=== PATIENT | female | born 2000 | race Caucasian/White ===

== ENCOUNTER 2022-04-20 11:17 | Outpatient (REF) | payer OTHER, SELFPAY ==
[2022-04-20 15:45] LABS: Bilirubin Negative (Negative); Blood Small (Negative); Clarity Sl Cloudy (Clear); Glucose Negative (Negative); Ketones Negative (Negative); Leukocyte Esterase Small (Negative); Nitrite Positive (Negative); Urobilinogen 0.2 EU/dL (Up TO 0.2); pH 6.5 (5-8)
[2022-04-20 15:55] LABS: Epithelial Cells Few HPF (Negative)
[2022-04-20 15:56] LABS: Bacteria Many HPF (Negative); C & S Indicated? C&S Done As Ordered; Crystals Moderate Amorphous HPF (Negative); Mucus Negative (Negative); Other Cells Moderate Renal (Negative)
== END 2022-04-20 11:18 | disposition home or self-care (01) ==
LOC: LBN 11:17
PROVIDERS: Visit Provider Physician Assistant Medical
DX: R30.9 Painful micturition, unspecified (principal)
CPT/HCPCS: 87077; 81003; 81015; 87086; 87186

== ENCOUNTER 2023-10-01 18:18 | Outpatient (CLI) | payer OTHER, SELFPAY ==
[2023-10-01 08:28] LABS: HCG Quant, Pregnancy 5774 mIU/mL (1-3)
== END 2023-10-01 18:19 | disposition home or self-care (01) ==
LOC: LBO 18:19
PROVIDERS: PCP Registered Nurse; Visit Provider Obstetrics & Gynecology
DX: O20.9 Hemorrhage in early pregnancy, unspecified (principal); Z34.91 Encounter for supervision of normal pregnancy, unspecified, first trimester
CPT/HCPCS: 36415; 86850; 86900; 86901; 84702

== ENCOUNTER 2024-02-28 01:04 | Outpatient (CLI) | payer OTHER, SELFPAY ==
[2024-02-28 14:24] LABS: Panorama Kit Sent via Fed Ex
[2024-02-28 14:42] LABS: Abs Immature Grans 0.08 10^3/uL (0.0-0.06); Absolute Lymphocyte Count 1.82 10^3/uL (1.2-3.4); Absolute Monocyte Count 0.75 10^3/uL (0.1-0.8); Absolute Neutrophil Count 8.12 10^3/uL (1.2-6.7); Basophils % 0.5 %; Eosinophils % 2.3 %; HCT 38.4 % (36.0-46.0); HGB 13.3 g/dL (11.2-15.7); Immature Grans % 0.7 %; Lymphocytes % 16.4 %; MCH 30.4 pg (27.0-33.0); MCHC 34.6 % (32.0-36.0); MCV 88 fL (80-95); MPV 9.2 fL (8.0-11.0); Monocytes % 6.8 %; Neutrophils % 73.3 %; Platelet Count 361 10^3/uL (130-400); RBC 4.38 10^6/uL (3.93-5.22); RDW 12.3 % (11.7-14.6); RDW-SD 39.1 fL; WBC 11.08 10^3/uL (4.4-10.8)
[2024-02-28 14:43] LABS: Absolute Basophil Count 0.06 10^3/uL (0.0-0.2); Absolute Eosinophil Count 0.25 10^3/uL (0.0-0.7)
[2024-02-28 14:53] LABS: Glucose,1 Hr (Glucola) 106 mg/dL (80-140)
[2024-02-29 09:30] LABS: Hepatitis B Surface Ag Negative (Negative)
[2024-02-29 09:59] LABS: Hepatitis C Ab w Rflx HCV PCR Negative (Negative)
[2024-02-29 10:14] LABS: HIV-1/2 Ag & Ab Screen Negative (Negative)
[2024-02-29 11:17] LABS: Varicella IgG Antibody Positive (See Note)
[2024-02-29 13:06] LABS: Rubella IgG Ab (UVM) Negative (See Note)
[2024-03-01 14:41] LABS: Syphilis IgG w/Reflex Nonreactive (Nonreactive)
[2024-03-03 17:13] LABS: Specimen WB Whole Blood
[2024-03-13 16:18] LABS: Result Summary NEGATIVE; Specimen WB Whole Blood
== END 2024-02-28 01:05 | disposition home or self-care (01) ==
LOC: LBO 01:04
PROVIDERS: PCP Registered Nurse; Visit Provider Advanced Practice Midwife
DX: Z34.91 Encounter for supervision of normal pregnancy, unspecified, first trimester; Z3A.12 12 weeks gestation of pregnancy
CPT/HCPCS: 36415; 81220; 81222; 81329; 82950; 86787; 86803; 86850; 86900; 86901; 87340; 87389; 85025; 86762; 86780

== ENCOUNTER 2024-02-28 14:53 | Outpatient (REF) | payer OTHER, SELFPAY ==
[2024-02-29 13:21] LABS: Chlamydia Result Negative (Negative); GC Result Negative (Negative)
== END 2024-02-28 14:54 | disposition home or self-care (01) ==
LOC: LBN 14:53
PROVIDERS: PCP Physician Assistant; Visit Provider Advanced Practice Midwife
DX: Z34.91 Encounter for supervision of normal pregnancy, unspecified, first trimester
CPT/HCPCS: 87491; 87591; 87086

== ENCOUNTER 2024-05-05 19:02 | Emergency (ER) | payer OTHER, SELFPAY ==
[2024-05-05 19:11] VITALS: BP 126/82; PULSE 102; RESP 16; TEMP 36.6; O2SAT 96
[2024-05-05 21:13] LABS: Bilirubin Negative (Negative); Blood Negative (Negative); Clarity Clear (Clear); Glucose Negative (Negative); Ketones Negative (Negative); Leukocyte Esterase Negative (Negative); Nitrite Negative (Negative); Urobilinogen 0.2 mg/dL (Up to 0.2); pH 6.5 (5-8)
--- NOTE | 2024-05-05 21:32 | W.ED.GENAD ---
Discharge Plan Disposition Patient Disposition: Home Condition: Improving Discharge Details Chief Complaint: Abd Prob Clinical Impression: Diarrhea Primary Care Provider: Oliver Barrera ED Provider: James Don Home Meds and New Rx's Prescriptions: No Action ondansetron 4 mg tablet,disintegrating 4 mg PO Q8H folic acid 800 mcg tablet 0.8 mg PO DAILY Flintstones Multivitamin Tablet,Chewable 2 tab PO DAILY ferrous sulfate [Feosol] 325 mg (65 mg iron) tablet 325 mg PO DAILY Qty: 90 4RF clotrimazole [Clotrimazole-7] 1 % cream 1 appful vaginal QHS Qty: 45 0RF docusate sodium [Colace] 100 mg capsule 100 mg PO DAILY aspirin 81 mg tablet,delayed release (DR/EC) 81 mg PO DAILY Qty: 60 5RF Rx Instructions: 1 tab daily, alternating with 2 tabs every other day Discharge Instructions Instructions: Diarrhea, Adult ED Additional Instructions: Please follow-up with your [employer] as well as your primary care physician. Return to the emergency department for any worsening symptoms HPI General Date/Time Provider Initiated Documentation: 05/05/24 20:51. HPI Narrative: 24-year-old female 22 weeks presents with diarrhea over the last 5 days nonbloody, patient does have history of C. difficile, outpatient primary care C. difficile negative on Sunday, patient has noticed some small amounts of mucus in her stool, was having upwards of 7 loose stools a day early on in the course it is now slow to 2-3 loose stools, denies abdominal pain vaginal bleeding discharge or urinary symptoms had a recent normal [employer] appointment with ultrasound. Feels normal movement. Denies nausea or vomiting Related Data Home Medications ?Medication ?Instructions ?Recorded ?Confirmed ondansetron 4 mg disintegrating 4 mg PO Q8H 09/19/23 05/05/24 tablet docusate sodium 100 mg capsule 100 mg PO DAILY 01/25/24 05/05/24 (Colace) aspirin 81 mg tablet,delayed 81 mg PO DAILY #60 tabs 02/28/24 05/05/24 release ferrous sulfate 325 mg (65 mg 325 mg PO DAILY #90 tabs 03/28/24 05/05/24 iron) tablet (Feosol) folic acid 800 mcg tablet 0.8 mg PO DAILY 03/28/24 05/05/24 pediatric multivitamin 2 tab PO DAILY 03/28/24 05/05/24 (Flintstones Multivitamin chewable tablet) clotrimazole 1 % vaginal cream 1 appful vaginal QHS #45 grams 04/28/24 05/05/24 (Clotrimazole-7) Previous Rx's ?Medication ?Instructions ?Recorded aspirin 81 mg tablet,delayed 81 mg PO DAILY #60 tabs 02/28/24 release ferrous sulfate 325 mg (65 mg 325 mg PO DAILY #90 tabs 03/28/24 iron) tablet (Feosol) clotrimazole 1 % vaginal cream 1 appful vaginal QHS #45 grams 04/28/24 (Clotrimazole-7) Allergies Allergy/AdvReac Type Severity Reaction Status Date / Time cephalexin (From Keflex) AdvReac Intermediate vomiting Verified 05/05/24 19:15 [id number] (From AdvReac Other (See Unverified 05/05/24 19:15 Ajovy Syringe) Comment) General Stated Complaint: Abd Prob DAHLIA: 3 Course Vital Signs Vital signs: Vital Signs Temperature 36.6 C 05/05/24 19:11 Pulse 102 H 05/05/24 19:11 Respiratory Rate 16 05/05/24 19:11 Blood Pressure 126/82 05/05/24 19:11 Pulse Oximetry 96 05/05/24 19:11 Temperature 36.6 C 05/05/24 19:11 Pulse 102 H 05/05/24 19:11 Respiratory Rate 16 05/05/24 19:11 Respiratory Effort Normal, Non-Labored 05/05/24 21:13 Blood Pressure 126/82 05/05/24 19:11 Blood Pressure Position Sitting 05/05/24 19:11 Pulse Oximetry 96 05/05/24 19:11 Oxygen Delivery Method Room Air 05/05/24 19:11 Oxygen Flow Rate 0 05/05/24 19:11 Pain Level 0 05/05/24 19:11 Lab/Test Results Lab/Test Results: Laboratory Tests Range/Units 05/05/24 21:07 Urine Color (Yellow) Yellow Urine Clarity (Clear) Clear Urine pH (5-8) 6.5 Ur Specific [place] (1.005-1.025) 1.020 Urine Protein (Neg-Trace) mg/dL Negative Urine Ketones (Negative) mg/dL Negative Urine Blood (Negative) Negative Urine Nitrite (Negative) Negative Urine Bilirubin (Negative) Negative Urine Urobilinogen (Up to 0.2) mg/dL 0.2 Ur Leukocyte Esterase (Negative) Negative Urine Glucose (Negative) mg/dL Negative POC- Test(urine) Positive Medical Decision Making 24-year-old female 22 weeks presents with diarrhea over the last 5 days nonbloody, patient does have history of C. difficile, outpatient primary care C. difficile negative on Sunday, patient has noticed some small amounts of mucus in her stool, was having upwards of 7 loose stools a day early on in the course it is now slow to 2-3 loose stools, denies abdominal pain vaginal bleeding discharge or urinary symptoms had a recent normal [employer] appointment with ultrasound. Feels normal movement. Denies nausea or vomiting; resting comfortably no acute distress, afebrile nonperitoneal, gravid abdomen, mild tachycardia heart rate of 102 normotensive, slight drying of oral mucosa however good skin color and skin turgor; will obtain basic labs to assess for electrolyte derangement, if patient has a bowel movement here department will recent C. difficile will also send ova parasites consider resolving viral enteritis lower suspicion for appendicitis or cholecystitis, lower suspicion for UTI will provide fluid hydration close reassessment 23: 00 patient resting comfortably no acute distress, feeling better after fluids, no bowel movement here in department. Patient will follow-up close with primary care and [employer] Quality:SDOH Health Related Social Needs: No Data to Display PFSH All Active Problems (Updated 05/05/24 @ 23:01 by James Don MD) Diarrhea (Acute) Rubella non-immune status, antepartum (Acute) Family history of genetic disorder (Acute) History of pyelonephritis (Acute) (Acute) Tonsillolith (Acute) BMI 32.0-32.9,adult (Acute) Migraine (Chronic) daily. 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, congenital cartilage deficiency Missed menses Miscarriage Transformed migraine Sensorineural hearing loss Recurrent candidiasis of vagina Pelvic pain Migraine with aura Hyperprolactinemia Galactorrhea Dysmenorrhea Chronic tension headache Asthma Allergic reaction Surgical History History of mandibular surgery Family History Maternal Grandfather Diabetes Paternal Grandfather Diabetes Maternal Aunt Hypertension Father Laryngeal hypoplasia tracheotomy Mother Preeclampsia ADHD Endometriosis Social History Smoking/Tobacco Use Status: Never Smoking risk assessment performed?: Yes Alcohol Intake: never Drug use: Never History History 2 Para 0 Hx # Term Pregnancies 0 Multiple births 0 Hx # Pregnancies 0 Ectopic pregnancies 0 AB induced 0 Hx Number of Living Children 0 AB spontaneous 1 Past Pregnancies Del. Date GA/Weeks # Preg Succ Route Wgt Sex Labor Lgth Anesthesia Location Prov Complic 10/01/23 7 No Delivery Date: 10/01/23 Last Updated by: Stefania Aviles MD SAB
[2024-05-05 21:38] LABS: Abs Immature Grans 0.09 10^3/uL (0.0-0.06); Absolute Basophil Count 0.04 10^3/uL (0.0-0.2); Absolute Eosinophil Count 0.25 10^3/uL (0.0-0.7); Absolute Lymphocyte Count 1.69 10^3/uL (1.2-3.4); Absolute Monocyte Count 0.89 10^3/uL (0.1-0.8); Absolute Neutrophil Count 6.68 10^3/uL (1.2-6.7); Basophils % 0.4 %; Eosinophils % 2.6 %; HCT 36.7 % (36.0-46.0); HGB 13.1 g/dL (11.2-15.7); Immature Grans % 0.9 %; Lymphocytes % 17.5 %; MCH 31.4 pg (27.0-33.0); MCHC 35.7 % (32.0-36.0); MCV 88 fL (80-95); Monocytes % 9.2 %; Neutrophils % 69.4 %; Platelet Count 309 10^3/uL (130-400); RBC 4.17 10^6/uL (3.93-5.22); RDW 12.6 % (11.7-14.6); RDW-SD 40.7 fL; WBC 9.64 10^3/uL (4.4-10.8)
[2024-05-05] MEDS: Normal Saline 1,000 ML 1000 ML IV (21:52)
[2024-05-05 22:07] LABS: ALT 31 U/L (14-59); AST 13 U/L (15-37); Albumin 2.9 g/dL (3.4-5.0); Alkaline Phosphatase 85 U/L (46-116); Anion Gap 10.2 mmol/L (3-11); BUN 4 mg/dL (7-18); Bilirubin, Total 0.25 mg/dL (0.2-1.0); CO2 22.8 mmol/L (21.0-32.0); CREATININE 0.6 mg/dL (0.55-1.02); Calcium 8.8 mg/dL (8.5-10.1); Chloride 105 mmol/L (98-107); Estimated GFR 126.87 (mL/min/1.73m2); Glucose 86 mg/dL (74-106); Potassium 3.4 mmol/L (3.5-5.1); Sodium 138 mmol/L (136-145); Total Protein 6.8 g/dL (6.4-8.2)
[2024-05-05 23:06] VITALS: BP 132/70; PULSE 87; RESP 16; O2SAT 99
== END 2024-05-05 23:06 | disposition home or self-care (01) ==
PROVIDERS: Emergency Provider Emergency Medicine; PCP Physician Assistant
DX: O99.612 Diseases of the digestive system complicating pregnancy, second trimester (principal); Z3A.22 22 weeks gestation of pregnancy; R19.7 Diarrhea, unspecified
CPT/HCPCS: 36415; 80053; 96360; 99284; 81003; 85025; 99283

== ENCOUNTER 2024-06-20 01:10 | Outpatient (CLI) | payer OTHER, SELFPAY ==
[2024-06-20 09:26] LABS: HCT 37.8 % (36.0-46.0); HGB 13.3 g/dL (11.2-15.7); MCH 31.2 pg (27.0-33.0); MCHC 35.2 % (32.0-36.0); MCV 89 fL (80-95); MPV 8.9 fL (8.0-11.0); Platelet Count 288 10^3/uL (130-400); RBC 4.26 10^6/uL (3.93-5.22); RDW 12.6 % (11.7-14.6); RDW-SD 40.4 fL
[2024-06-20 09:36] LABS: Glucose,1 Hr (Glucola) 147 mg/dL (80-140)
== END 2024-06-20 01:11 | disposition home or self-care (01) ==
LOC: LBO 01:10
PROVIDERS: PCP Physician Assistant; Visit Provider Advanced Practice Midwife
DX: Z34.93 Encounter for supervision of normal pregnancy, unspecified, third trimester (principal); Z3A.28 28 weeks gestation of pregnancy
CPT/HCPCS: 36415; 82950; 85027

== ENCOUNTER 2024-06-27 01:13 | Outpatient (CLI) | payer OTHER, SELFPAY ==
[2024-06-27 09:12] LABS: Glucose 1 Hour 168 mg/dL
[2024-06-27 10:58] LABS: Glucose 3 Hour 108 mg/dL
== END 2024-06-27 01:14 | disposition home or self-care (01) ==
LOC: LBO 01:14
PROVIDERS: Advanced Practice Midwife; PCP Physician Assistant; Visit Provider Obstetrics & Gynecology
DX: R73.09 Other abnormal glucose (principal)
CPT/HCPCS: 36415; 82951

== ENCOUNTER 2024-08-15 12:01 | Outpatient (REF) | payer OTHER, SELFPAY | END 2024-08-15 12:02 | disposition home or self-care (01) | LOC: LBN 12:01 | PROVIDERS: PCP Physician Assistant; Visit Provider Advanced Practice Midwife | DX: Z34.93 Encounter for supervision of normal pregnancy, unspecified, third trimester (principal) | CPT/HCPCS: 87081 ==

== ENCOUNTER 2024-08-29 15:17 | Outpatient (CLI) | payer OTHER, SELFPAY ==
[2024-08-29 15:31] VITALS: BP 138/85; PULSE 87; TEMP 36.5
[2024-08-29 15:36] VITALS: BP 138/85; PULSE 87
[2024-08-29 15:46] LABS: HCT 38.4 % (36.0-46.0); HGB 13.7 g/dL (11.2-15.7); MCH 31.6 pg (27.0-33.0); MCHC 35.7 % (32.0-36.0); MCV 89 fL (80-95); MPV 10.1 fL (8.0-11.0); Platelet Count 305 10^3/uL (130-400); RBC 4.34 10^6/uL (3.93-5.22); RDW 12.5 % (11.7-14.6); RDW-SD 40.8 fL; WBC 9.34 10^3/uL (4.4-10.8)
[2024-08-29 16:04] LABS: ALT 19 U/L (14-59); AST 14 U/L (15-37); Albumin 2.7 g/dL (3.4-5.0); Alkaline Phosphatase 201 U/L (46-116); Anion Gap 11.9 mmol/L (3-11); BUN 10 mg/dL (7-18); Bilirubin, Total 0.36 mg/dL (0.2-1.0); CO2 21.1 mmol/L (21.0-32.0); CREATININE 0.7 mg/dL (0.55-1.02); Calcium 9.8 mg/dL (8.5-10.1); Chloride 106 mmol/L (98-107); Estimated GFR 122.25 (mL/min/1.73m2); Glucose 98 mg/dL (74-106); Potassium 3.9 mmol/L (3.5-5.1); Sodium 139 mmol/L (136-145); Total Protein 6.9 g/dL (6.4-8.2)
[2024-08-29 16:14] VITALS: BP 156/91; PULSE 77
[2024-08-29 16:15] VITALS: BP 156/91; PULSE 77
[2024-08-29 16:19] VITALS: BP 138/91
--- NOTE | 2024-08-29 16:27 | W.OBNST ---
Date of service: 08/29/24 Time of Service: 16:27 NST Evaluation Reason for NST Reasons for Nonstress Test: GESTATIONAL HYPERTENSION Gestational Age Gestational Age in Weeks and Days: 38 Weeks and 4Days Test and Monitor Explained Test/Monitor Explained: Test Explained, Monitor Explained and Patient Verbalized Understanding Vital Signs Blood Pressure: 138/85 Pulse: 87 Temperature: 97.7 F Urine Results Urine Protein: Negative Urine Ketones: Negative Urine Glucose: Negative Urine Blood: Negative NST Information Date on Monitor: 08/29/24 Time on Monitor: 15:25 Date off Monitor: 08/29/24 Time off Monitor: 16:30 Total Time on Monitor: 65 NST Interventions: PO Hydration Contraction Frequency: 0 NST Evaluation Patient States Movement: Present FHR Baseline: 135 Variability: Moderate 6-25 bpm Accelerations: 15x15 Decelerations: None NST Results: Reactive Note Ultrasound Done: N/A. NST Note Note: Cvx 1/50% posterior, firm, vtx -3 Labs nml, urine pending, RTO 48 hrs for BP/NST and repeat labs NST Reviewed and Verified by: Cande Lloyd
[2024-08-29 16:28] VITALS: BP 138/85; PULSE 87; TEMP 36.5
[2024-08-29 16:37] LABS: COMMENT (LAB VIEW ONLY) 11.84 mg/dL; PROTEIN < 6.0 mg/dL
== END 2024-08-29 16:30 ==
LOC: BCD 15:17 → OBS 15:18
PROVIDERS: Advanced Practice Midwife; PCP Physician Assistant; Visit Provider Advanced Practice Midwife
DX: O13.3 Gestational [pregnancy-induced] hypertension without significant proteinuria, third trimester (principal); Z3A.38 38 weeks gestation of pregnancy
CPT/HCPCS: 59025; 80053; 85027; 82565; 84156

== ENCOUNTER 2024-08-31 11:39 | Inpatient (IN) | payer OTHER, SELFPAY ==
[2024-08-31] VITALS (33 sets, daily range): BP systolic 130–150; BP diastolic 77–91; PULSE 67–110; RESP 16–17; TEMP 36.7–37.1; O2SAT 97–99
[2024-08-31 10:45] LABS: HCT 37.4 % (36.0-46.0); HGB 13.3 g/dL (11.2-15.7); MCH 31.7 pg (27.0-33.0); MCHC 35.6 % (32.0-36.0); MCV 89 fL (80-95); MPV 9.9 fL (8.0-11.0); Platelet Count 276 10^3/uL (130-400); RBC 4.19 10^6/uL (3.93-5.22); RDW 12.7 % (11.7-14.6); RDW-SD 41.6 fL; WBC 8.23 10^3/uL (4.4-10.8)
--- NOTE | 2024-08-31 10:47 | PDOC.NST_ITS ---
Date of service: 08/31/24 Time of Service: 10:47 NST Evaluation Reason for NST Reasons for Nonstress Test: GESTATIONAL HYPERTENSION Gestational Age Gestational Age in Weeks and Days: 38 Weeks and 6Days Test and Monitor Explained Test/Monitor Explained: Test Explained, Monitor Explained and Patient Verbalized Understanding Vital Signs Blood Pressure: 138/91 Pulse: 91 Temperature: 98.1 F Urine Results Urine Protein: Positive Urine Ketones: Positive Urine Glucose: Negative Urine Blood: Negative NST Information Time on Monitor: 10:15 Date off Monitor: 08/31/24 NST Interventions: PO Hydration NST Evaluation Patient States Movement: Present FHR Baseline: 120 Variability: Moderate 6-25 bpm Accelerations: 15x15 Decelerations: None NST Results: Reactive Note Ultrasound Done: N/A. NST Note Note: Pre-eclampsia labs obtained. Plan to repeat BP and if stable have patient return on 09/02/24 for probable repeat labs, NST and possible IOL. Akosua denies unusual CABALLERO, epigastric pain or vision changes. She feels well overall and reports she understands the diagnosis of GHTN. Repeat BP 150/71, labs stable, no laboratory or physical symptoms of pre- eclampsia. Recommendation is induction of labor and patient agrees to IOL. We discussed cervical ripening and delivery. ENRIQUE NST Reviewed and Verified by: Ally Lo
[2024-08-31 10:59] LABS: ALT 18 U/L (14-59); AST 15 U/L (15-37); Albumin 2.6 g/dL (3.4-5.0); Alkaline Phosphatase 195 U/L (46-116); Anion Gap 11.1 mmol/L (3-11); BUN 13 mg/dL (7-18); Bilirubin, Total 0.32 mg/dL (0.2-1.0); CO2 20.9 mmol/L (21.0-32.0); CREATININE 0.9 mg/dL (0.55-1.02); Calcium 9.4 mg/dL (8.5-10.1); Chloride 106 mmol/L (98-107); Estimated GFR 90.42 (mL/min/1.73m2); Glucose 97 mg/dL (74-106); Potassium 3.9 mmol/L (3.5-5.1); Sodium 138 mmol/L (136-145); Total Protein 6.5 g/dL (6.4-8.2)
[2024-08-31 11:09] LABS: COMMENT (LAB VIEW ONLY) 16.87 mg/dL; PROTEIN < 6.0 mg/dL
--- NOTE | 2024-08-31 11:33 | W.PM.OBHPL1 ---
Date of service: 08/31/24 Time of Service: 11:37 Assessment and Plan Assessment and plan (1) Gestational hypertension, third trimester: Status: Acute Assessment and plan: 1. Admit, labs to be completed, Type and Screen 2. Discussed cervical ripening and patient agrees to misoprostol vaginally 3. Risks, benefits and alternatives to misoprostol or induciton of labor vs expectant management have been reviewed. Patient is aware and desires moving forward with induction today 4. Will place misoprostol vaginally and reassess in 4 hours or prn 5. Expect NVD. OB-HPI Labor/Delivery History of Present Illness Reason for Visit: NST Chief Complaint: Scheduled Induction of Labor Indication for Induction: Gestational Hypertension. LASHONDA Calculator Estimated Delivery Date Method Current WG Current Estimate 09/08/24 Ultrasound #1 38w 6d Other Estimates 09/02/24 LMP (Certain) 39w 5d Comments: Akosua and her partner, Raul Son, presented for NST due to new onset elevated blood pressure with negative pre-eclmapis workup on 08/30/24. She is feeling well. No CABALLERO changes (has CABALLERO daily even outside of ) Denies visual changes, epigastric pain, sudden increase in edema or vaginal bleeding or LOF. Baby has been active. She has been counseled on GHTN and the indication for delivery. We discussed option of going home and returning later today for cervical ripening, declining induction (not recommended but would do testing and continued management if she declined induction) or considering induction tomorrow. She agrees to move forward today. History of Present Expected Delivery Route/Plan - CNM FOB/boyfriend - Raul Son (first child) BB-will circ Plans unmedicated experience: Support team - both mom's Erika & Whitney and FOB Rubella non-immune, pt accepts MMR GBS negative Specific Issues/Plan 1. BMI 32, early glucola 106; 28 wk glucola 147, 3 hr GTT 91, 168, 148, 108 2. cfDNA- low risk, and CF/SMA Neg, AFP declined. 3. Low dose ASA for nulliparity, BMI & hx her mother w/HTN in 4. Chronic migraine, daily CABALLERO's, followed by [facility] neurology, IV infusions in the past, no meds currently 4a. Daily headaches persist. 5. Family hx Congenital laryngealtracheal hypoplasia: [facility] genetic counseling, level 2 & MFM consult 5a. Level 2 scan nml on 04/25/24 6. Heartburn - protonix escribed. Assessment: History Reviewed & Current Informed Consent Informed Consent: Induction of Labor (discussed misoprostol, cervidil and pitocin) and Risk,Benefits,Alternatives Discussed Review of Systems All systems reviewed & are unremarkable except as noted in HPI and below Constitutional Constitutional: Reports as per HPI and Reports headache(s) (reports daily CABALLERO, not life altering discomfort) Eyes Eyes: Reports as per HPI ENT Ears, Nose, Mouth, and Throat: Reports headache(s) (reports daily CABALLERO, not life altering discomfort) Neurologic Neurologic: Reports headache(s) (reports daily CABALLERO, not life altering discomfort) PFSH All Active Problems (Updated 08/31/24 @ 11:52 by Ally Lo CNM) Gestational hypertension, third trimester (Acute) Elevated glucose level (Acute) Rubella non-immune status, antepartum (Acute) Family history of genetic disorder (Acute) History of pyelonephritis (Acute) (Acute) Tonsillolith (Acute) BMI 32.0-32.9,adult (Acute) Migraine (Chronic) daily. 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, congenital cartilage deficiency Missed menses Miscarriage Transformed migraine Sensorineural hearing loss Recurrent candidiasis of vagina Pelvic pain Migraine with aura Hyperprolactinemia Galactorrhea Dysmenorrhea Chronic tension headache Asthma Allergic reaction Surgical History History of mandibular surgery Family History Maternal Grandfather Diabetes Paternal Grandfather Diabetes Maternal Aunt Hypertension Father Laryngeal hypoplasia tracheotomy Mother Preeclampsia ADHD Endometriosis Social History Smoking/Tobacco Use Status: Never Smoking risk assessment performed?: Yes Alcohol Intake: never Drug use: Never History History 2 Para 0 Hx # Term Pregnancies 0 Multiple births 0 Hx # Pregnancies 0 Ectopic pregnancies 0 AB induced 0 Hx Number of Living Children 0 AB spontaneous 1 Past Pregnancies Del. Date GA/Weeks # Preg Succ Route Wgt Sex Labor Lgth Anesthesia Location Prov Complic 10/01/23 7 No Delivery Date: 10/01/23 Last Updated by: Stefania Aviles MD SAB Meds Allergies and Home Medications Allergies Allergy/AdvReac Type Severity Reaction Status Date / Time cephalexin (From Keflex) AdvReac Intermediate vomiting Verified 08/29/24 14:47 [id number] (From AdvReac Other (See Unverified 08/29/24 14:47 Ajovy Syringe) Comment) Home Medications ?Medication ?Instructions ?Recorded ?Confirmed ?Type docusate sodium 100 mg capsule 100 mg PO DAILY 01/25/24 08/29/24 History (Colace) aspirin 81 mg tablet,delayed 81 mg PO DAILY #60 tabs 02/28/24 08/29/24 Rx release ferrous sulfate 325 mg (65 mg 325 mg PO DAILY #90 tabs 03/28/24 08/29/24 Rx iron) tablet (Feosol) folic acid 800 mcg tablet 0.8 mg PO DAILY 03/28/24 08/29/24 History pediatric multivitamin 2 tab PO DAILY 03/28/24 08/29/24 [facility] pantoprazole 40 mg tablet,delayed 40 mg PO DAILY #30 tabs 05/23/24 08/29/24 Rx release (Protonix) Exam Physical Exam Vital signs: Pulse BP 71 150/79 H 08/31/24 10:51 08/31/24 10:53 Vital Signs Reviewed: Yes Constitutional Constitutional: no acute distress and obese (BMI 34) Detailed Labor and Delivery Exam Dilation: 1 Effacement (%): 50 station: -3 [place] Score: Cervical Points Exam 0 1 2 3 Dilation Closed 1-2cm 3-4 cm 5-6cm Effacement 0-30% 40-50% 60-70% 80% Consistency Firm Medium Soft Station -3 -2 -1,0 +1,+2 Position Posterior Mid Anterior Amniotic Membrane Status: Intact Contraction Frequency(min): irregular and mild Fetus A Heart Rate Baseline: 120 Monitor Accelerations: 15 X 15 Monitor Decelerations: None Variability: Moderate (6-25 BPM) Categories: Category I Est. Weight: 7 lb 8 oz HEENT Exam HEENT Exam: Normal Neck Exam Neck Exam: Normal (visual exam) Chest/Brest/Axilla Exam Chest Exam: Normal Breast Exam Breast Exam: Not Done Respiratory Exam Respiratory Exam: Normal Cardiovascular Exam Cardiovascular Exam: Abnormal (some BP elevation, no severe range BP's) Abdominal Exam Abdominal Exam: Normal (gravid uterus, size equals dates, cephalic by leopolds and VE)) Rectal Exam Rectal Exam: Not Done Exam Exam: Normal Extremities Exam Extremities Exam: Normal Back/Spine/Pelvis Exam Back Exam: Normal Pelvis Adequate: Yes Skin Exam Skin Exam: Normal Neurological Exam Neurological Exam: Normal Psychiatric Exam Psychiatric Exam: Normal Results Results Group Beta Strep: Negative Blood Type: O+ Rubella Status: Nonimmune Varicella Immunity: Immune Lab Results: HIV NR/ Hep B and C Neg/ Syphilis IgG Ab NR/1 hour 147, 3 hr 91, 168, 148 and 108/ cfDNA LR/ SMA and CF Neg/ Abnormal Lab Findings: Abnormal Labs 08/31/24 10:40 Carbon Dioxide 20.9 L Anion Gap 11.1 H Alkaline Phosphatase 195 H Albumin 2.6 L Risk Assessment Risk for Shoulder Dystocia Historical/Initial OB: POSITIVE FOR: Pre- BMI>30; NEGATIVE FOR: Pelvic Abnormality, Previous Shoulder Dystocia or Previous Macrosomia Delivery Plan @ 40 wks: low risk Risk for Pre-Eclampsia Date Initiated/Initials: to start @ 12 wks. JK Yes, if one or more: NEGATIVE FOR: Hx Pre-E/Gest HTN, Chronic HTN, Multiple Gestation, Pre-gestational DM, Renal Disease, Systemic Lupus or APA Syndrome Yes, if 2 or more: POSITIVE FOR: Nulliparity, BMI>30 and Mother/Sister w/ Pre-E; NEGATIVE FOR: Age>= 35 yrs, >10yr btwn pregnancies, ethinicty or Previous IUGR Risk for Post- Hemorrhage Initial: NEGATIVE FOR: Multiple Gestation, Previous PPH, Known Clotting Deficiency, Grand Multiparity or Anticoagulation Counseled re: Active Management: Yes Date/Initials: 08/31/24 KH Risks Reviewed Risks Reviewed Upon Admission: Yes (currently low risk but may change due to IOL will continue to reassess risk)
[2024-08-31] MEDS: miSOPROStol 25 MCG TAB 50 MCG VG (12:05)
[2024-08-31] MEDS: Fluconazole 150 MG TAB PO (14:12)
--- NOTE | 2024-08-31 17:54 | W.PM.OBNL1 ---
Date of service: 08/31/24 Time of Service: 17:54 Informed Consent Informed Consent: Induction of Labor (discussed misoprostol, cervidil and pitocin) and Risk,Benefits,Alternatives Discussed Pelvic Exam Comments: VE deferred Contractions Monitor Mode: Palpation Contraction Frequency(min): 2-3 Contraction Duration(sec): 40-60 Intensity: Mild/Moderate Fetus A Monitor: Doppler Heart Rate Baseline: 120 Assessment and Plan Assessment and plan (1) Gestational hypertension, third trimester: Status: Acute Assessment and plan: 1. Will continue to observe contraction pattern and reassess for any decrease in intensity or frequency of contractions 2. VE as indicated 3. Continue to expect NVD. KH Objective Abnormal lab results 08/31/24 Range/Units 10:40 Carbon Dioxide 20.9 L (21.0-32.0) mmol/L Anion Gap 11.1 H (3-11) mmol/L Alkaline Phosphatase 195 H (46-116) U/L Albumin 2.6 L (3.4-5.0) g/dL Temp Pulse Resp BP Pulse Ox 98.1 F 81 16 136/91 H 98 08/31/24 12:14 08/31/24 16:10 08/31/24 12:14 08/31/24 16:10 08/31/24 16:07 Laboratory Results WBC 8.23 10^3/uL (4.4-10.8) 08/31/24 10:40 RBC 4.19 10^6/uL (3.93-5.22) 08/31/24 10:40 Hgb 13.3 g/dL (11.2-15.7) 08/31/24 10:40 Hct 37.4 % (36.0-46.0) 08/31/24 10:40 MCV 89 fL (80-95) 08/31/24 10:40 MCH 31.7 pg (27.0-33.0) 08/31/24 10:40 MCHC 35.6 % (32.0-36.0) 08/31/24 10:40 RDW 12.7 % (11.7-14.6) 08/31/24 10:40 Plt Count 276 10^3/uL (130-400) 08/31/24 10:40 MPV 9.9 fL (8.0-11.0) 08/31/24 10:40 Sodium 138 mmol/L (136-145) 08/31/24 10:40 Potassium 3.9 mmol/L (3.5-5.1) 08/31/24 10:40 Chloride 106 mmol/L (98-107) 08/31/24 10:40 Carbon Dioxide 20.9 mmol/L (21.0-32.0) L 08/31/24 10:40 Anion Gap 11.1 mmol/L (3-11) H 08/31/24 10:40 BUN 13 mg/dL (7-18) 08/31/24 10:40 Creatinine 0.9 mg/dL (0.55-1.02) 08/31/24 10:40 Est GFR (CKD-EPI 2020) 90.42 (mL/min/1.73m2) 08/31/24 10:40 Glucose 97 mg/dL (74-106) 08/31/24 10:40 Calcium 9.4 mg/dL (8.5-10.1) 08/31/24 10:40 Total Bilirubin 0.32 mg/dL (0.2-1.0) 08/31/24 10:40 AST 15 U/L (15-37) 08/31/24 10:40 ALT 18 U/L (14-59) 08/31/24 10:40 Alkaline Phosphatase 195 U/L (46-116) H 08/31/24 10:40 Total Protein 6.5 g/dL (6.4-8.2) 08/31/24 10:40 Albumin 2.6 g/dL (3.4-5.0) L 08/31/24 10:40 Ur Random Creatinine 16.87 mg/dL 08/31/24 10:45 U Random Total Protein < 6.0 mg/dL 08/31/24 10:45 U [place] Prot/Creat Ratio 08/31/24 10:45 ABO/Rh O Positive 08/31/24 11:55 Antibody Screen NEGATIVE 08/31/24 11:55 Vital Signs Reviewed: Yes Subjective Interval history since last seen: Continues to have contractions, 5 in 10 and reports increased intensity. Results Hemoglobin/Hematocrit: Hgb 13.3 g/dL (11.2-15.7) 08/31/24 10:40 Hct 37.4 % (36.0-46.0) 08/31/24 10:40 Abnormal Lab Findings: Abnormal Labs 08/31/24 10:40 Carbon Dioxide 20.9 L Anion Gap 11.1 H Alkaline Phosphatase 195 H Albumin 2.6 L
--- NOTE | 2024-08-31 18:39 | PGE_ITS ---
Date of service: 08/31/24 Time of Service: 18:39 Informed Consent Informed Consent: Induction of Labor (discussed misoprostol, cervidil and pitocin) and Risk,Benefits,Alternatives Discussed Pelvic Exam Dilation: 1.5 Effacement (%): 80 station: -2 Position: CHRISTINA Cervix Position: mid Consistency: medium BISHOPS Score(Cervical Ripeness Score): 7 Contractions Monitor Mode: Palpation Contraction Frequency(min): 2-3 Contraction Duration(sec): 40-60 Intensity: Moderate Fetus A Monitor: Doppler Heart Rate Baseline: 137 Assessment and Plan Assessment and plan (1) Gestational hypertension, third trimester: Status: Acute Assessment and plan: 1. Continue to observe, no further misoprostol at this time, if contractions space will switch to pitocin 2. Expect NVD. KH Objective Abnormal lab results 08/31/24 Range/Units 10:40 Carbon Dioxide 20.9 L (21.0-32.0) mmol/L Anion Gap 11.1 H (3-11) mmol/L Alkaline Phosphatase 195 H (46-116) U/L Albumin 2.6 L (3.4-5.0) g/dL Temp Pulse Resp BP Pulse Ox 98.1 F 81 16 136/91 H 98 08/31/24 12:14 08/31/24 16:10 08/31/24 12:14 08/31/24 16:10 08/31/24 16:07 Laboratory Results WBC 8.23 10^3/uL (4.4-10.8) 08/31/24 10:40 RBC 4.19 10^6/uL (3.93-5.22) 08/31/24 10:40 Hgb 13.3 g/dL (11.2-15.7) 08/31/24 10:40 Hct 37.4 % (36.0-46.0) 08/31/24 10:40 MCV 89 fL (80-95) 08/31/24 10:40 MCH 31.7 pg (27.0-33.0) 08/31/24 10:40 MCHC 35.6 % (32.0-36.0) 08/31/24 10:40 RDW 12.7 % (11.7-14.6) 08/31/24 10:40 Plt Count 276 10^3/uL (130-400) 08/31/24 10:40 MPV 9.9 fL (8.0-11.0) 08/31/24 10:40 Sodium 138 mmol/L (136-145) 08/31/24 10:40 Potassium 3.9 mmol/L (3.5-5.1) 08/31/24 10:40 Chloride 106 mmol/L (98-107) 08/31/24 10:40 Carbon Dioxide 20.9 mmol/L (21.0-32.0) L 08/31/24 10:40 Anion Gap 11.1 mmol/L (3-11) H 08/31/24 10:40 BUN 13 mg/dL (7-18) 08/31/24 10:40 Creatinine 0.9 mg/dL (0.55-1.02) 08/31/24 10:40 Est GFR (CKD-EPI 2020) 90.42 (mL/min/1.73m2) 08/31/24 10:40 Glucose 97 mg/dL (74-106) 08/31/24 10:40 Calcium 9.4 mg/dL (8.5-10.1) 08/31/24 10:40 Total Bilirubin 0.32 mg/dL (0.2-1.0) 08/31/24 10:40 AST 15 U/L (15-37) 08/31/24 10:40 ALT 18 U/L (14-59) 08/31/24 10:40 Alkaline Phosphatase 195 U/L (46-116) H 08/31/24 10:40 Total Protein 6.5 g/dL (6.4-8.2) 08/31/24 10:40 Albumin 2.6 g/dL (3.4-5.0) L 08/31/24 10:40 Ur Random Creatinine 16.87 mg/dL 08/31/24 10:45 U Random Total Protein < 6.0 mg/dL 08/31/24 10:45 U [place] Prot/Creat Ratio 08/31/24 10:45 ABO/Rh O Positive 08/31/24 11:55 Antibody Screen NEGATIVE 08/31/24 11:55 Vital Signs Reviewed: Yes Subjective Interval history since last seen: Has had nausea and vomiting but keeping water in. Reports contractions remain strong. Has had some pink vaginal discharge. Results Hemoglobin/Hematocrit: Hgb 13.3 g/dL (11.2-15.7) 08/31/24 10:40 Hct 37.4 % (36.0-46.0) 08/31/24 10:40 Abnormal Lab Findings: Abnormal Labs 08/31/24 10:40 Carbon Dioxide 20.9 L Anion Gap 11.1 H Alkaline Phosphatase 195 H Albumin 2.6 L
[2024-08-31] MEDS: Ondansetron O.D.T. 4 MG TABEF PO (21:47)
[2024-09-01] VITALS (227 sets, daily range): BP systolic 96–173; BP diastolic 48–111; PULSE 68–148; RESP 14–16; TEMP 36.5–37.7; O2SAT 78–100; BMI 34.5
--- NOTE | 2024-09-01 00:25 | W.PM.OBNL1 ---
Date of service: 09/01/24 Time of Service: 00:25 Informed Consent Informed Consent: Induction of Labor (discussed misoprostol, cervidil and pitocin) and Risk,Benefits,Alternatives Discussed Pelvic Exam Dilation: 5 Effacement (%): 100 station: -1 Cervix Position: anterior Consistency: soft Comments: positive for bloody show Contractions Monitor Mode: Palpation Contraction Frequency(min): 2-3 Contraction Duration(sec): 60 Intensity: Moderate/Strong Fetus A Monitor: Doppler Heart Rate Baseline: 130 Assessment and Plan Assessment and plan (1) Gestational hypertension, third trimester: Status: Acute Assessment and plan: 1. continue present management and reassess in 2 hours or prn 2. Encourage position changes and relaxation 3. Continues to PO hydrate Objective Abnormal lab results 08/31/24 Range/Units 10:40 Carbon Dioxide 20.9 L (21.0-32.0) mmol/L Anion Gap 11.1 H (3-11) mmol/L Alkaline Phosphatase 195 H (46-116) U/L Albumin 2.6 L (3.4-5.0) g/dL Temp Pulse Resp BP Pulse Ox 98.3 F 70 17 122/71 98 09/01/24 00:15 09/01/24 00:15 08/31/24 21:43 09/01/24 00:15 08/31/24 16:07 Laboratory Results WBC 8.23 10^3/uL (4.4-10.8) 08/31/24 10:40 RBC 4.19 10^6/uL (3.93-5.22) 08/31/24 10:40 Hgb 13.3 g/dL (11.2-15.7) 08/31/24 10:40 Hct 37.4 % (36.0-46.0) 08/31/24 10:40 MCV 89 fL (80-95) 08/31/24 10:40 MCH 31.7 pg (27.0-33.0) 08/31/24 10:40 MCHC 35.6 % (32.0-36.0) 08/31/24 10:40 RDW 12.7 % (11.7-14.6) 08/31/24 10:40 Plt Count 276 10^3/uL (130-400) 08/31/24 10:40 MPV 9.9 fL (8.0-11.0) 08/31/24 10:40 Sodium 138 mmol/L (136-145) 08/31/24 10:40 Potassium 3.9 mmol/L (3.5-5.1) 08/31/24 10:40 Chloride 106 mmol/L (98-107) 08/31/24 10:40 Carbon Dioxide 20.9 mmol/L (21.0-32.0) L 08/31/24 10:40 Anion Gap 11.1 mmol/L (3-11) H 08/31/24 10:40 BUN 13 mg/dL (7-18) 08/31/24 10:40 Creatinine 0.9 mg/dL (0.55-1.02) 08/31/24 10:40 Est GFR (CKD-EPI 2020) 90.42 (mL/min/1.73m2) 08/31/24 10:40 Glucose 97 mg/dL (74-106) 08/31/24 10:40 Calcium 9.4 mg/dL (8.5-10.1) 08/31/24 10:40 Total Bilirubin 0.32 mg/dL (0.2-1.0) 08/31/24 10:40 AST 15 U/L (15-37) 08/31/24 10:40 ALT 18 U/L (14-59) 08/31/24 10:40 Alkaline Phosphatase 195 U/L (46-116) H 08/31/24 10:40 Total Protein 6.5 g/dL (6.4-8.2) 08/31/24 10:40 Albumin 2.6 g/dL (3.4-5.0) L 08/31/24 10:40 Ur Random Creatinine 16.87 mg/dL 08/31/24 10:45 U Random Total Protein < 6.0 mg/dL 08/31/24 10:45 U [place] Prot/Creat Ratio 08/31/24 10:45 ABO/Rh O Positive 08/31/24 11:55 Antibody Screen NEGATIVE 08/31/24 11:55 Subjective Interval history since last seen: Requested VE, feeling pressure with contractions but no involuntary urge to push. Is using Nitrous for pain relief with good results. Results Hemoglobin/Hematocrit: Hgb 13.3 g/dL (11.2-15.7) 08/31/24 10:40 Hct 37.4 % (36.0-46.0) 08/31/24 10:40 Abnormal Lab Findings: Abnormal Labs 08/31/24 10:40 Carbon Dioxide 20.9 L Anion Gap 11.1 H Alkaline Phosphatase 195 H Albumin 2.6 L
[2024-09-01] MEDS: Lactated Ringers 1,000 ML 999 ML IV (02:00)
--- NOTE | 2024-09-01 02:44 | W.ANESNEU ---
Epidural/Spinal Catheter Date Performed: 09/01/24 Procedure Start: 02:25 Procedure Stop: 02:56 Requesting Provider: Ally Lo Procedure Location: Obstetrics Reason Performed: Labor Epidural Standard Monitors Applied: Blood Pressure, SpO2 and See EMR for corresponding vital signs Patient Position: Sitting Sedation Given (Indicate Dose Given): No Sedation given Patient Mental Status: Awake Sterility: Hand Hygiene, Surgical Cap, Surgical Mask, Sterile Gloves, Sterile Drape/Sheet and Chlorhexidine Procedure Location: L3-L4 Interspace Epidural Needle: Tuohy 18 Gauge Needle Length: 3.5 Inch Needle Approach: Midline Epidural Procedure: Skin Prepped, Sterile Drape Placed, 1% Lidocaine to skin and subcutaneous tissue with 25G needle, Tuohy Needle placed, CINTIA to Saline Used, Epidural Catheter Placed, Negative Heme, Negative CSF Flow and Tuohy Needle Removed Catheter Placed?: Catheter Placed Test Dose (Indicate Dose Given): 3ml 1.5% Lidocaine with 1:200K Epinephrine Given and Negative Test Dose Loss of Resistance Depth (cm): 7 Catheter depth at skin (cm): 12 Dressing: Sorbaview Dressing Placed, Mastisol Used and Dressing reinforced with Tape Epidural Provider Bolus (Indicate Dose Given): Total bolus dose given in 3-5 ml divided doses and Total Ropivacaine 0.1% with Fentanyl 2mcg/ml Given from pump. (ml) Dose:: Total 15ml Additives (Indicate Dose Given ): None Infusion Medication: Medication Infusion Began Medication Infusion: Ropivacaine 0.1% with Fentanyl 2mcg/ml Maintenance Infusion Rate (ml/hour): 10 PCEA Bolus Dose (ml): 5 Post Procedure Pain score (0-10): 2 Block Level: N/A Paresthesia: None Ultrasound: Not Used Number of Attempts (See previous attempts in note section): 2 Procedure Tolerated: No Complications and Patient tolerated well Procedure Outcome: Successful Procedure Comment:: 1st attempt at same space just lower and more to the right with bone contact. Adjusted insertion and modified pt. position with good success. Catheter placed 0234, negative test dose. Gave total of 15ml divided doses with good relief, now only feeling pressure. Does state left foot/toes more numb than right, but contractions equally relieved. Educated on PCEA use and questions answered. Performed By: Rizwan Lopez
[2024-09-01] MEDS: Terbutaline 1 MG/ML VIAL 0.25 MG SC (03:19)
--- NOTE | 2024-09-01 03:53 | W.PM.OBNL1 ---
Date of service: 09/01/24 Time of Service: 03:53 Informed Consent Informed Consent: Induction of Labor (discussed misoprostol, cervidil and pitocin) and Risk,Benefits,Alternatives Discussed Pelvic Exam Dilation: 5 Fetus A Heart Rate Baseline: 120 Variability: Moderate (6-25 BPM) Categories: Category I Accelerations: 15 X 15 Decelerations: None Assessment Note: FHT evaluation from 3:20 - 4:04am. Assessment and Plan Assessment and plan (1) heart rate decelerations affecting management of mother: Status: Acute Assessment and plan: P0 @39wks with a prolonged FHR deceleration post-epidural. The deceleration resolved s/p administration of terbutaline with return to Cat 1 FHT. The patient was returned to resting on her back and the FHR continued to be Cat 1. Will plan continued observation, likely CS if repeat deceleration, labor augmentation if needed after several hours. Objective Abnormal lab results 08/31/24 Range/Units 10:40 Carbon Dioxide 20.9 L (21.0-32.0) mmol/L Anion Gap 11.1 H (3-11) mmol/L Alkaline Phosphatase 195 H (46-116) U/L Albumin 2.6 L (3.4-5.0) g/dL Temp Pulse Resp BP Pulse Ox 98.1 F 131 H 16 117/53 L 100 09/01/24 02:54 09/01/24 03:52 09/01/24 02:57 09/01/24 03:52 09/01/24 03:51 Laboratory Results WBC 8.23 10^3/uL (4.4-10.8) 08/31/24 10:40 RBC 4.19 10^6/uL (3.93-5.22) 08/31/24 10:40 Hgb 13.3 g/dL (11.2-15.7) 08/31/24 10:40 Hct 37.4 % (36.0-46.0) 08/31/24 10:40 MCV 89 fL (80-95) 08/31/24 10:40 MCH 31.7 pg (27.0-33.0) 08/31/24 10:40 MCHC 35.6 % (32.0-36.0) 08/31/24 10:40 RDW 12.7 % (11.7-14.6) 08/31/24 10:40 Plt Count 276 10^3/uL (130-400) 08/31/24 10:40 MPV 9.9 fL (8.0-11.0) 08/31/24 10:40 Sodium 138 mmol/L (136-145) 08/31/24 10:40 Potassium 3.9 mmol/L (3.5-5.1) 08/31/24 10:40 Chloride 106 mmol/L (98-107) 08/31/24 10:40 Carbon Dioxide 20.9 mmol/L (21.0-32.0) L 08/31/24 10:40 Anion Gap 11.1 mmol/L (3-11) H 08/31/24 10:40 BUN 13 mg/dL (7-18) 08/31/24 10:40 Creatinine 0.9 mg/dL (0.55-1.02) 08/31/24 10:40 Est GFR (CKD-EPI 2020) 90.42 (mL/min/1.73m2) 08/31/24 10:40 Glucose 97 mg/dL (74-106) 08/31/24 10:40 Calcium 9.4 mg/dL (8.5-10.1) 08/31/24 10:40 Total Bilirubin 0.32 mg/dL (0.2-1.0) 08/31/24 10:40 AST 15 U/L (15-37) 08/31/24 10:40 ALT 18 U/L (14-59) 08/31/24 10:40 Alkaline Phosphatase 195 U/L (46-116) H 08/31/24 10:40 Total Protein 6.5 g/dL (6.4-8.2) 08/31/24 10:40 Albumin 2.6 g/dL (3.4-5.0) L 08/31/24 10:40 Ur Random Creatinine 16.87 mg/dL 08/31/24 10:45 U Random Total Protein < 6.0 mg/dL 08/31/24 10:45 U [place] Prot/Creat Ratio 08/31/24 10:45 ABO/Rh O Positive 08/31/24 11:55 Antibody Screen NEGATIVE 08/31/24 11:55 Vital Signs Reviewed: Yes Subjective Interval history since last seen: Called to come to the Center due to a prolonged deceleration. The pt is a P0 @39wks who received 1 dose of misoprostol for induction of labor due to new onset GHTN. She progressed into spontaneous labor and was 5cm when she requested an epidural. She was nate every 2-2.5min at the time. She was placed back on the monitor post-epidural at 2:40 and at 3:04 the FHR underwent a deceleration from baseline with difficulty tracing until 3:07 where it was in the 60s. It began to increase at 3:12 and returned to baseline by 3:15 with moderate variability. Meanwhile the ophthalmology surgical technician was orchestrating position changes and then gave the pt terbultaline. I was called at 3:18 and by the time I arrived at 3:37 the FHT had returned to Cat 1. The pt was in hands and knees leaning on the back of the bed. Anesthesia had been called and was also in house. Results Hemoglobin/Hematocrit: Hgb 13.3 g/dL (11.2-15.7) 08/31/24 10:40 Hct 37.4 % (36.0-46.0) 08/31/24 10:40 Abnormal Lab Findings: Abnormal Labs 08/31/24 10:40 Carbon Dioxide 20.9 L Anion Gap 11.1 H Alkaline Phosphatase 195 H Albumin 2.6 L
[2024-09-01] MEDS: Lactated Ringers 1,000 ML 200 ML IV ×3 (04:00→11:38)
--- NOTE | 2024-09-01 04:02 | PGE_ITS ---
Date of service: 09/01/24 Time of Service: 04:02 Informed Consent Informed Consent: Induction of Labor (discussed misoprostol, cervidil and pitocin) and Risk,Benefits,Alternatives Discussed Pelvic Exam Dilation: 6 Effacement (%): 100 station: -1 Cervix Position: mid Consistency: soft Contractions Monitor Mode: External Contraction Frequency(min): every 5-6 Contraction Duration(sec): 30-60 Intensity: Mild/Moderate Fetus A Monitor: Internal (FSE) Heart Rate Baseline: 115 Variability: Minimal (1-5 BPM) Categories: Category II CategoryII Plan of Care: Intrauterine Resuscitation (improving with intrauterine resuscitation efforts, ), Team Huddle, Medical Consult and Continuous Monitoring/Observation Accelerations: 10 X 10 Decelerations: None Amniotic Membrane Status: Ruptured Assessment and Plan Assessment and plan (1) heart rate decelerations affecting management of mother: Status: Acute Assessment and plan: 1. IV fluid bolus given, maternal repositioning done, FSE placed, Terbutaline 0.25 mg SQ given. Consult with Dr. Aviles and KEYONNA gray. 2. Plan is to observe and see if labor resumes as terbutaline resolves and FHR tolerates labor 3. Patient counseled on C/S and anesthesia for C/S if required for intolerance or other indications and she verbalizes understanding and agrees to this plan.KH Objective Abnormal lab results 08/31/24 Range/Units 10:40 Carbon Dioxide 20.9 L (21.0-32.0) mmol/L Anion Gap 11.1 H (3-11) mmol/L Alkaline Phosphatase 195 H (46-116) U/L Albumin 2.6 L (3.4-5.0) g/dL Temp Pulse Resp BP Pulse Ox 98.1 F 130 H 16 109/53 L 99 09/01/24 02:54 09/01/24 03:57 09/01/24 02:57 09/01/24 03:57 09/01/24 03:56 Laboratory Results WBC 8.23 10^3/uL (4.4-10.8) 08/31/24 10:40 RBC 4.19 10^6/uL (3.93-5.22) 08/31/24 10:40 Hgb 13.3 g/dL (11.2-15.7) 08/31/24 10:40 Hct 37.4 % (36.0-46.0) 08/31/24 10:40 MCV 89 fL (80-95) 08/31/24 10:40 MCH 31.7 pg (27.0-33.0) 08/31/24 10:40 MCHC 35.6 % (32.0-36.0) 08/31/24 10:40 RDW 12.7 % (11.7-14.6) 08/31/24 10:40 Plt Count 276 10^3/uL (130-400) 08/31/24 10:40 MPV 9.9 fL (8.0-11.0) 08/31/24 10:40 Sodium 138 mmol/L (136-145) 08/31/24 10:40 Potassium 3.9 mmol/L (3.5-5.1) 08/31/24 10:40 Chloride 106 mmol/L (98-107) 08/31/24 10:40 Carbon Dioxide 20.9 mmol/L (21.0-32.0) L 08/31/24 10:40 Anion Gap 11.1 mmol/L (3-11) H 08/31/24 10:40 BUN 13 mg/dL (7-18) 08/31/24 10:40 Creatinine 0.9 mg/dL (0.55-1.02) 08/31/24 10:40 Est GFR (CKD-EPI 2020) 90.42 (mL/min/1.73m2) 08/31/24 10:40 Glucose 97 mg/dL (74-106) 08/31/24 10:40 Calcium 9.4 mg/dL (8.5-10.1) 08/31/24 10:40 Total Bilirubin 0.32 mg/dL (0.2-1.0) 08/31/24 10:40 AST 15 U/L (15-37) 08/31/24 10:40 ALT 18 U/L (14-59) 08/31/24 10:40 Alkaline Phosphatase 195 U/L (46-116) H 08/31/24 10:40 Total Protein 6.5 g/dL (6.4-8.2) 08/31/24 10:40 Albumin 2.6 g/dL (3.4-5.0) L 08/31/24 10:40 Ur Random Creatinine 16.87 mg/dL 08/31/24 10:45 U Random Total Protein < 6.0 mg/dL 08/31/24 10:45 U [place] Prot/Creat Ratio 08/31/24 10:45 ABO/Rh O Positive 08/31/24 11:55 Antibody Screen NEGATIVE 08/31/24 11:55 Subjective Interval history since last seen: Currently, Akosua is doing well. Resting on her right side. She had been hands and knees in response to a prolonged deceleration at 0304 with FHR into 60's with response to IV fluid bolus, position changes, FSE / scalp stim and Terbutaline 0.25 mg SQ. She had received an epidural and BP had decreased to 111/55. Reported rectal pressure but VE only 5-6. By 0313 FHR was above 100 and BP 120/64. Akosua tolerated all procedures well and position change. Verbalized understanding that C/S would be needed if baby's heart rate did not remain WNL. Dr. Aviles and Rizwan Lopez CRNA were called to be at bedside and available as well. Results Hemoglobin/Hematocrit: Hgb 13.3 g/dL (11.2-15.7) 08/31/24 10:40 Hct 37.4 % (36.0-46.0) 08/31/24 10:40 Abnormal Lab Findings: Abnormal Labs 08/31/24 10:40 Carbon Dioxide 20.9 L Anion Gap 11.1 H Alkaline Phosphatase 195 H Albumin 2.6 L
--- NOTE | 2024-09-01 04:04 | ANES.PREOP_ITS ---
General Info Date of Service Date Performed: 09/01/24 Height: 5 ft Weight: 80.286 kg Body Mass Index (BMI): 34.5 Meds Allergies and Home Medications Allergies Allergy/AdvReac Type Severity Reaction Status Date / Time cephalexin (From Keflex) AdvReac Intermediate vomiting Verified 08/29/24 14:47 [id number] (From AdvReac Other (See Unverified 08/29/24 14:47 Ajovy Syringe) Comment) Home Medication ?Medication ?Instructions ?Recorded docusate sodium 100 mg capsule 100 mg PO DAILY 01/25/24 (Colace) aspirin 81 mg tablet,delayed 81 mg PO DAILY #60 tabs 02/28/24 release ferrous sulfate 325 mg (65 mg 325 mg PO DAILY #90 tabs 03/28/24 iron) tablet (Feosol) folic acid 800 mcg tablet 0.8 mg PO DAILY 03/28/24 pediatric multivitamin 2 tab PO DAILY 03/28/24 (Flintstones Multivitamin chewable tablet) pantoprazole 40 mg tablet,delayed 40 mg PO DAILY #30 tabs 05/23/24 release (Protonix) Current Visit Medications: Current Medications Generic Name Dose Route Start Last Admin Trade Name Freq PRN Reason Stop Dose Admin Ephedrine Sulfate 5 mg 09/01/24 02:56 Ephedrine 50 Mg/Ml Vial IVP DIRECTED PRN Fentanyl/Ropivacaine 200 ml 09/01/24 01:30 Fentanyl/Ropivacaine 2 Mcg/Ml And 0.1% 200 Ml [place] EP DIRECTED NAZIA Ringer's Solution 1,000 mls @ 200 mls/hr 08/31/24 11:45 IV INFUSION PRN maternal / indication Naloxone HCl 2 mg/ Sodium 500 mls @ 10.036 mls/hr 09/01/24 02:56 Chloride IV INFUSION PRN Pruritis or Nausea/Vomiting 0.5 MCG/KG/HR Nalbuphine HCl 5 mg/ Sodium 50.5 mls @ 100 mls/hr 09/01/24 02:56 Chloride IVPB Q3H PRN PRN Pruritis IV Miscellaneous Supplies 1 each 08/31/24 11:34 Iv Access IV DIRECTED PRN maternal / indication Misoprostol 50 mcg 08/31/24 12:00 08/31/24 21:55 Misoprostol 25 Mcg Tab VG Not Given Q4H [facility] Naloxone HCl 0.04 mg 09/01/24 02:56 Naloxone 0.4 Mg/Ml Vial IVP PRN PRN Pruritis or Nausea/Vomiting Naloxone HCl 0 mg 09/01/24 02:56 Naloxone 0.4 Mg/Ml Vial IVP DIRECTED PRN Respiratory Depression/Arrest Ondansetron HCl 4 mg 08/31/24 18:43 08/31/24 21:47 Ondansetron O.D.T. 4 Mg Tabef PO 4 mg Q6H PRN PRN Administration Ondansetron HCl 4 mg 09/01/24 02:56 Ondansetron 4 Mg/2 Ml Vial IVP Q6H PRN PRN Nausea Pantoprazole Sodium 20 mg 08/31/24 18:43 Pantoprazole 20 Mg Tabcr PO DAILY PRN PRN Sodium Chloride 0 ml 08/31/24 11:34 Normal Saline Flush 10 Ml Syr IVP PRN PRN Sodium Chloride 0 ml 08/31/24 20:00 08/31/24 21:55 Normal Saline Flush 10 Ml Syr IVP Not Given BID NAZIA Sodium Chloride 0 ml 08/31/24 11:34 Normal Saline 10 Ml Vial IJ DIRECTED PRN Terbutaline Sulfate 0.25 mg 08/31/24 11:34 09/01/24 03:19 Terbutaline 1 Mg/Ml Vial SC 0.25 mg PRN PRN Administration Zolpidem Tartrate 10 mg 08/31/24 21:00 08/31/24 21:55 Zolpidem 5 Mg Tab PO 09/01/24 06:00 Not Given 2100 NAZIA PFSH Active Problems Active Problems: Problem Status Onset Code Gestational hypertension, third trimester Acute O13.3 Elevated glucose level Acute R73.09 Rubella non-immune status, antepartum Acute O09.899, Z28.39 Family history of genetic disorder Acute Z84.89 History of pyelonephritis Acute Z87.448 Acute Z34.90 Tonsillolith Acute J35.8 BMI 32.0-32.9,adult Acute Z68.32 Migraine Chronic G43.909 Medical History Medical History 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, congenital cartilage deficiency Missed menses Miscarriage Transformed migraine Sensorineural hearing loss Recurrent candidiasis of vagina Pelvic pain Migraine with aura Hyperprolactinemia Galactorrhea Dysmenorrhea Chronic tension headache Asthma Allergic reaction Surgical History Surgical History History of mandibular surgery Tobacco Smoking/Tobacco Use Status: Never Alcohol Alcohol Intake: never Substance Use Substance use: Never Prental History History 2 2 Para 0 Hx # Term Pregnancies 0 Multiple births 0 Hx # Pregnancies 0 Ectopic pregnancies 0 AB induced 0 Hx Number of Living Children 0 AB spontaneous 1 Past Pregnancies Del. Date GA/Weeks # Preg Succ Route Wgt Sex Labor Lgth Anesth esia Location Prov Complic 10/01/23 7 No Delivery Date: 10/01/23 Last Updated by: Stefania Aviles MD [facility] Vital Signs and Lab Results Vital Signs Most Recent Vital Signs in EMR: Most Recent Vital Signs Temp Pulse Resp BP Pulse Ox 36.7 C 123 H 16 106/52 L 99 09/01/24 02:54 09/01/24 04:03 09/01/24 02:57 09/01/24 04:03 09/01/24 04:01 Lab Results 08/31/24 10:40 08/31/24 10:40 Blood Type / Crossmatch: 2 Antibody Screen NEGATIVE 08/31/24 Complete Blood Count: 2 White Blood Count 8.23 10^3/uL (4.4-10.8) 08/31/24 10:40 Red Blood Count 4.19 10^6/uL (3.93-5.22) 08/31/24 10:40 Hemoglobin 13.3 g/dL (11.2-15.7) 08/31/24 10:40 Hematocrit 37.4 % (36.0-46.0) 08/31/24 10:40 Platelet Count 276 10^3/uL (130-400) 08/31/24 10:40 Complete Metabolic Panel: 2 Sodium 138 mmol/L (136-145) 08/31/24 10:40 Potassium 3.9 mmol/L (3.5-5.1) 08/31/24 10:40 Chloride 106 mmol/L (98-107) 08/31/24 10:40 Carbon Dioxide 20.9 mmol/L (21.0-32.0) L 08/31/24 10:40 BUN 13 mg/dL (7-18) 08/31/24 10:40 Creatinine 0.9 mg/dL (0.55-1.02) 08/31/24 10:40 Est GFR (CKD-EPI 2020) 90.42 (mL/min/1.73m2) 08/31/24 10:40 Calcium 9.4 mg/dL (8.5-10.1) 08/31/24 10:40 Albumin 2.6 g/dL (3.4-5.0) L 08/31/24 10:40 Glucose 97 mg/dL (74-106) 08/31/24 10:40 Liver Function Panel: 2 Alanine Aminotransferase (ALT/SGPT) 18 U/L (14-59) 08/31/24 10: 40 Aspartate Amino Transf (AST/SGOT) 15 U/L (15-37) 08/31/24 10:40 Coagulation Panel: 2 No Data to Display Cardiac Panel: 2 No Data to Display Arterial Blood Gas: 2 No Data to Display Venous Blood Gas: 2 No Data to Display Pancreas Panel: 2 No Data to Display Thyroid Panel: 2 No Data to Display Infectious Disease: 2 No Data to Display Blood Cultures: 2 No Data to Display Toxicology Panel: 2 No Data to Display Panel: 2 No Data to Display Anesthesia Assessment and Plan Anesthesia History Personal History: No History of Anesthesia Complications Family History: No Family History of Anesthesia Complications Exercise Tolerance Exercise Tolerance: Metabolic Equivalents>4 Cardiac & Pulmonary Exam Cardiac Exam: Normal S1/S2 Heart Sounds Pulmonary Exam: Clear Bilateral Breath Sounds Implantable Cardiac Device Does patient have a Pacemaker or an ICD?: No Airway Exam Known Difficult Airway: No Mallampati Class: 2 Mouth Opening: Normal (> 3cm) Thyromental Distance: Greater than 3 cm Neck Range of Motion: Full ROM Neck Circumference: Normal Teeth Condition: Normal Dentition ASA Classification ASA Score: ASA 2 Emergency Case?: No NPO Status NPO Status: Full Stomach Status Status: Confirmed Anesthesia Plan Resuscitation Status: Full Code Anesthesia Technique: General Anesthesia Airway Planned: Endotracheal Tube Monitors Used: Standard Monitors
--- NOTE | 2024-09-01 08:01 | PGE_ITS ---
Date of service: 09/01/24 Time of Service: 08:01 Informed Consent Informed Consent: Induction of Labor (discussed misoprostol, cervidil and pitocin) and Risk,Benefits,Alternatives Discussed Pelvic Exam Comments: VE deferred Contractions Monitor Mode: External Contraction Frequency(min): 4-5 Contraction Duration(sec): 60 Intensity: Mild/Moderate Fetus A Monitor: Internal (FSE) Heart Rate Baseline: 120 Variability: Moderate (6-25 BPM) Categories: Category I Accelerations: Present Decelerations: None Assessment Note: leaking clear fluid sine approximately 0250 today Assessment and Plan Assessment and plan (1) Encounter for induction of labor: Status: Acute Assessment and plan: 1. Will augment with pitoicn this morning per consult with Dr. Aviles 2. Expect NVD. KH Objective Abnormal lab results 08/31/24 Range/Units 10:40 Carbon Dioxide 20.9 L (21.0-32.0) mmol/L Anion Gap 11.1 H (3-11) mmol/L Alkaline Phosphatase 195 H (46-116) U/L Albumin 2.6 L (3.4-5.0) g/dL Temp Pulse Resp BP Pulse Ox 99.1 F 103 H 16 119/58 L 99 09/01/24 07:40 09/01/24 07:56 09/01/24 07:40 09/01/24 07:55 09/01/24 07:56 Laboratory Results WBC 8.23 10^3/uL (4.4-10.8) 08/31/24 10:40 RBC 4.19 10^6/uL (3.93-5.22) 08/31/24 10:40 Hgb 13.3 g/dL (11.2-15.7) 08/31/24 10:40 Hct 37.4 % (36.0-46.0) 08/31/24 10:40 MCV 89 fL (80-95) 08/31/24 10:40 MCH 31.7 pg (27.0-33.0) 08/31/24 10:40 MCHC 35.6 % (32.0-36.0) 08/31/24 10:40 RDW 12.7 % (11.7-14.6) 08/31/24 10:40 Plt Count 276 10^3/uL (130-400) 08/31/24 10:40 MPV 9.9 fL (8.0-11.0) 08/31/24 10:40 Sodium 138 mmol/L (136-145) 08/31/24 10:40 Potassium 3.9 mmol/L (3.5-5.1) 08/31/24 10:40 Chloride 106 mmol/L (98-107) 08/31/24 10:40 Carbon Dioxide 20.9 mmol/L (21.0-32.0) L 08/31/24 10:40 Anion Gap 11.1 mmol/L (3-11) H 08/31/24 10:40 BUN 13 mg/dL (7-18) 08/31/24 10:40 Creatinine 0.9 mg/dL (0.55-1.02) 08/31/24 10:40 Est GFR (CKD-EPI 2020) 90.42 (mL/min/1.73m2) 08/31/24 10:40 Glucose 97 mg/dL (74-106) 08/31/24 10:40 Calcium 9.4 mg/dL (8.5-10.1) 08/31/24 10:40 Total Bilirubin 0.32 mg/dL (0.2-1.0) 08/31/24 10:40 AST 15 U/L (15-37) 08/31/24 10:40 ALT 18 U/L (14-59) 08/31/24 10:40 Alkaline Phosphatase 195 U/L (46-116) H 08/31/24 10:40 Total Protein 6.5 g/dL (6.4-8.2) 08/31/24 10:40 Albumin 2.6 g/dL (3.4-5.0) L 08/31/24 10:40 Ur Random Creatinine 16.87 mg/dL 08/31/24 10:45 U Random Total Protein < 6.0 mg/dL 08/31/24 10:45 U [place] Prot/Creat Ratio 08/31/24 10:45 ABO/Rh O Positive 08/31/24 11:55 Antibody Screen NEGATIVE 08/31/24 11:55 Vital Signs Reviewed: Yes Subjective Interval history since last seen: Akosua is feeling well this morning except for some acid indigestion. She reports she is only feeling cramping at this point, no pressure. Agrees to Pitocin augmentation of her labor. We have discussed pitocin, how it works, and what we can do if contractions become too close. Denies questions. Results Hemoglobin/Hematocrit: Hgb 13.3 g/dL (11.2-15.7) 08/31/24 10:40 Hct 37.4 % (36.0-46.0) 08/31/24 10:40 Abnormal Lab Findings: Abnormal Labs 08/31/24 10:40 Carbon Dioxide 20.9 L Anion Gap 11.1 H Alkaline Phosphatase 195 H Albumin 2.6 L
[2024-09-01] MEDS: Oxytocin/Normal Saline 30 UNIT/500 ML BAG 1 UNITS IV (08:08)
[2024-09-01] MEDS: Normal Saline Flush 10 ML SYR IVP (08:21)
[2024-09-01] MEDS: Pantoprazole 40 MG VIAL IVP (08:22)
--- NOTE | 2024-09-01 11:36 | PGE_ITS ---
Date of service: 09/01/24 Time of Service: 11:36 Informed Consent Informed Consent: Induction of Labor (discussed misoprostol, cervidil and pitocin) and Risk,Benefits,Alternatives Discussed Pelvic Exam Dilation: 9 Effacement (%): 100 station: 0 Cervix Position: anterior Consistency: soft Contractions Monitor Mode: External Contraction Frequency(min): 204 Contraction Duration(sec): 60 Intensity: Moderate/Strong Fetus A Monitor: Internal (FSE) Heart Rate Baseline: 120 Variability: Moderate (6-25 BPM) Categories: Category I Accelerations: Present Decelerations: Early Assessment and Plan Assessment and plan (1) Encounter for induction of labor: Status: Acute Assessment and plan: continue present management, expect NVD. Pitocin is at 8mu. KH Objective Temp Pulse Resp BP Pulse Ox 98.7 F 76 14 131/63 100 09/01/24 10:35 09/01/24 11:25 09/01/24 10:39 09/01/24 11:25 09/01/24 09:46 Laboratory Results WBC 8.23 10^3/uL (4.4-10.8) 08/31/24 10:40 RBC 4.19 10^6/uL (3.93-5.22) 08/31/24 10:40 Hgb 13.3 g/dL (11.2-15.7) 08/31/24 10:40 Hct 37.4 % (36.0-46.0) 08/31/24 10:40 MCV 89 fL (80-95) 08/31/24 10:40 MCH 31.7 pg (27.0-33.0) 08/31/24 10:40 MCHC 35.6 % (32.0-36.0) 08/31/24 10:40 RDW 12.7 % (11.7-14.6) 08/31/24 10:40 Plt Count 276 10^3/uL (130-400) 08/31/24 10:40 MPV 9.9 fL (8.0-11.0) 08/31/24 10:40 Sodium 138 mmol/L (136-145) 08/31/24 10:40 Potassium 3.9 mmol/L (3.5-5.1) 08/31/24 10:40 Chloride 106 mmol/L (98-107) 08/31/24 10:40 Carbon Dioxide 20.9 mmol/L (21.0-32.0) L 08/31/24 10:40 Anion Gap 11.1 mmol/L (3-11) H 08/31/24 10:40 BUN 13 mg/dL (7-18) 08/31/24 10:40 Creatinine 0.9 mg/dL (0.55-1.02) 08/31/24 10:40 Est GFR (CKD-EPI 2020) 90.42 (mL/min/1.73m2) 08/31/24 10:40 Glucose 97 mg/dL (74-106) 08/31/24 10:40 Calcium 9.4 mg/dL (8.5-10.1) 08/31/24 10:40 Total Bilirubin 0.32 mg/dL (0.2-1.0) 08/31/24 10:40 AST 15 U/L (15-37) 08/31/24 10:40 ALT 18 U/L (14-59) 08/31/24 10:40 Alkaline Phosphatase 195 U/L (46-116) H 08/31/24 10:40 Total Protein 6.5 g/dL (6.4-8.2) 08/31/24 10:40 Albumin 2.6 g/dL (3.4-5.0) L 08/31/24 10:40 Ur Random Creatinine 16.87 mg/dL 08/31/24 10:45 U Random Total Protein < 6.0 mg/dL 08/31/24 10:45 U [place] Prot/Creat Ratio 08/31/24 10:45 ABO/Rh O Positive 08/31/24 11:55 Antibody Screen NEGATIVE 08/31/24 11:55 Subjective Interval history since last seen: Feeling rectal pressure but no involuntary urge to push. Results Hemoglobin/Hematocrit: Hgb 13.3 g/dL (11.2-15.7) 08/31/24 10:40 Hct 37.4 % (36.0-46.0) 08/31/24 10:40 Abnormal Lab Findings: Abnormal Labs 08/31/24 10:40 Carbon Dioxide 20.9 L Anion Gap 11.1 H Alkaline Phosphatase 195 H Albumin 2.6 L
[2024-09-01] MEDS: FentaNYL/ROPIvacaine 2 mcg/ml and 0.1% 200 ML CADD Cassette EP (15:35)
[2024-09-01] MEDS: Acetaminophen 325 MG TAB 650 MG PO (18:18)
[2024-09-01] MEDS: Ibuprofen 600 MG TAB PO (18:18)
[2024-09-01] MEDS: Hamamelis Leaf/Glycerin 100 EACH BOX PR (18:18)
[2024-09-01] MEDS: Dibucaine 1% 28 GM TUBE TP (18:19)
--- NOTE | 2024-09-01 18:26 | W.OBDELIVERY ---
Date of service: 09/01/24 Time of Service: 18:27 OB Labor/ Delivery Information Baby A Delivery Delivery Method: Spontaneaous Presentation: Cephalic Cephalic Position: Vertex Vertex Position: Left Occipital Anterior Cord Description-Baby A: 3 Vessels Amniotic Fluid: Clear Estimated Blood Loss: 250 Delivery Outcome: Liveborn Transferred: Remains with Mother Note: Akosua rested well with epidural and had an urge to push and was examined and found to have an anterior rim of cervix. She was encouraged to use her RELATIONS MGR and allowed to labor down. FHTs 120s during first stage of labor. with occasional variable decelerations. FHTs 115-120 in second stage with persistent variable decelerations with pushing. The urge to push became stronger and she was encourage do try pushing. An anterior rim of cervix was reduced easily and she was encouraged to continue pushing. There was a prolonged deceleration after she began pushing which resolved with position change to right side and oxygen via mask. Dr. Walsh was notified of patient's status. Second stage huddle was done x 2. Akosua continued to push well, There was a Spontaneous delivery of male delivered in CHRISTINA position. There was a loop of cord noted next to the shoulder. The Baby was placed on mother's abdomen and dried and stimulated. Spontaneous cry. Cord was clamped and cut by the baby's father. The placenta delivered spontaneously and appears to by intact with a three vessel cord. Pitocin 30 units IV was administered prior to delivery of the placenta. The perineum was inspected and a second degree laceration was repaired under local anethetic . The baby did breastfeed. After delivery, Mother and baby and father of the baby were stable and bonding well in the delivery room and there were no complications. Providers Nurse Activity Coordinator: Ally oWod Nurse: Estefany Lloyd Nurse: Marisela Velasco Labor/Delivery Information Number of Babies in Womb: 1 Steroids Given: None Reason Steroids Not Administered: N/A Group Beta Strep: Negative Antibiotics Administered: No Rubella Status: Nonimmune Blood Type: O+ Varicella Immunity: Immune Born En Route: No Shoulder Dystocia: No Stages of Labor ROM Baby A: 09/01/24 ROM Baby A: 02:50 ROM Total Time- Baby A: [id number] Delivery Date-Baby A: 09/01/24 Infant Delivery Time-Baby A: 16:53 Placenta Delivery Date-Baby A: 09/01/24 Placenta Delivery Time-Baby A: 17:10 Labor-Stage 3 Duration: 17 minutes Placenta Cultured: No Placenta Status: Delivered Baby A Gender: Male Gestational Status: Term (39-41.6 wks) Gestational Age in Weeks/Days: 39 Weeks and 0 Days Score-1 Minute Interval(Baby A) Heart Rate-1 minute: 100 BPM or Greater Respiratory Effort- 1 minute: Spontaneous/Strong Cry Muscle Tone-1 minute: Active Movement Reflex Response-1 minute: Prompt Response Color-1 minute: Bluish Hands or Feet Total Score-1 minute: 9 Score-5 Minute Interval(Baby A) Heart Rate- 5 minute: 100 BPM or Greater Respiratory Effort-5 minute: Spontaneous/Strong Cry Muscle Tone-5 minute: Active Movement Reflex Response-5 minute: Prompt Response Color-5 minute: Bluish Hands or Feet Total Score- 5 minute: 9 Interventions Repair of Laceration Type: Perineal, Laceration Extension: Second Degree. Sponge Count Correct: No Sponges Placed in Vagina, Sharp Count Correct: Yes.
[2024-09-02] MEDS: Ibuprofen 600 MG TAB PO ×3 (02:10→17:34)
[2024-09-02] MEDS: Acetaminophen 325 MG TAB 650 MG PO ×3 (02:11→17:34)
[2024-09-02 02:38] VITALS: BP 129/65; PULSE 66; TEMP 36.5
[2024-09-02 05:47] VITALS: BP 129/67; PULSE 77; RESP 15; TEMP 36.7
[2024-09-02 08:00] VITALS: BP 133/83; PULSE 85; RESP 14; TEMP 37.1
--- NOTE | 2024-09-02 10:02 | W.ANESPOSTOP ---
Postoperative Evaluation Date, Time and Location Date Performed: 09/02/24 Time Performed: 09:56 Patient Location: Obstetrics Vital Signs Most Recent Imported Vital Signs: Most Recent Vital Signs Temp Pulse Resp BP Pulse Ox 37.1 C 85 14 133/83 93 09/02/24 08:00 09/02/24 08:00 09/02/24 08:00 09/02/24 08:00 09/01/24 16:57 Pain Score Most Recent Pain Score: Most Recent Pain Score Pain Level 5 09/01/24 18:00 Assessment Mental Status: Awake (Alert & Oriented to Patient Baseline) Airway and Respiratory Function: Patent airway with normal (patient baseline) respiratory exam Cardiovascular Function: Hemodynamically Stable Hydration Status: Adequately Hydrated Nausea & Vomiting: No Nausea or Vomiting Pain: Pt. Denies Any Pain Peripheral Nerve Block: Patient did not receive a nerve block Postoperative Comments:: Patient met in OB suite, nursing . Reports some mild back discomfort, but was told to expect that per her understanding. Patient reassured this was quite common following an epidural placement, but encouraged to reach out with any additional questions/concerns.
--- NOTE | 2024-09-02 12:29 | OBPPV_ITS ---
Date of service: 09/02/24 Time of Service: 11:30 Assessment and Plan Assessment and plan (1) Term delivered: Status: Acute Assessment and plan: A: PPD#1, nml recovery, BP stable @ 130's over 80's off to a good start P: Plan discharge tomorrow after circumcision Pt thinks she might choose POP's for BCM Continue routine supports and care Offer MMR prior to discharge Subjective Subjective Patient comments: No complaints, Pain well controlled, Tolerating diet and [place] present Patient's Mood: happy [place] baby status: Doing well, Nursing well, Rooming in and Strong Bonding Observed [place] feeding status: Exclusively breast feeding Exam Physical Exam Vital signs: Temp Pulse Resp BP Pulse Ox 98.8 F 85 14 133/83 93 09/02/24 08:00 09/02/24 08:00 09/02/24 08:00 09/02/24 08:00 09/01/24 16:57 Vital Signs Reviewed: Yes Constitutional Constitutional: no acute distress, average body habitus and cooperative HEENT Exam HEENT Exam: Normal Neck Exam Neck Exam: Normal Breast Exam Bilateral: Breast Exam: Normal and Soft Nipple Exam: Normal and Uninjured Respiratory Exam Respiratory Exam: Normal Cardiovascular Exam Cardiovascular Exam: Normal Abdominal Exam Abdomen: Other (soft, nontender) Fundal Exam Fundus: Below Umbilicus and Firm Rectal Exam Rectal Exam: Normal Exam Perineum: Repair Intact Extremities Exam Extremity Exam: Normal, Full ROM and Warm to Touch Back/Spine/Pelvis Exam Back Exam: Normal Skin Exam Skin Exam: Normal Neurological Exam Neurological Exam: Normal Psychiatric Exam Psychiatric Exam: Normal
[2024-09-02 16:30] VITALS: BP 126/90; PULSE 73; RESP 16; TEMP 36.7
[2024-09-02 20:30] VITALS: BP 140/94; PULSE 72; RESP 17; TEMP 37.1; O2SAT 99
[2024-09-02] MEDS: Docusate Sodium 100 MG CAP PO (20:44)
[2024-09-03] MEDS: Acetaminophen 325 MG TAB 650 MG PO ×2 (02:45→12:09)
[2024-09-03] MEDS: Ibuprofen 600 MG TAB PO ×2 (02:45→12:10)
[2024-09-03 08:00] VITALS: BP 123/90; PULSE 66; RESP 16; TEMP 36.8; O2SAT 99
[2024-09-03] MEDS: Docusate Sodium 100 MG CAP PO (09:47)
[2024-09-03 12:10] VITALS: BP 142/91; PULSE 71; RESP 16; TEMP 36.7; O2SAT 99
--- NOTE | 2024-09-03 14:42 | OBPPV_ITS ---
Date of service: 09/03/24 Time of Service: 14:42 Assessment and Plan Assessment and plan (1) Term delivered: Status: Acute Assessment and plan: A: PPD#2, nml recovery, BP stable, 123/90 this morning P: Pt thinks she might choose POP's for BCM Discharge today, offer MMR vaccine Scheduled for BP check in 48 hrs, and 2 & 6 wk appts Written instructions reviewed and given to pt Subjective Subjective Patient comments: No complaints, Pain well controlled, Tolerating diet and [place] present Patient's Mood: happy [place] baby status: Doing well, Nursing well, Rooming in and Strong Bonding Observed [place] feeding status: Exclusively breast feeding Exam Physical Exam Vital signs: Temp Pulse Resp BP Pulse Ox 98.2 F 66 16 123/90 99 09/03/24 08:00 09/03/24 08:00 09/03/24 08:00 09/03/24 08:00 09/03/24 08:00 Vital Signs Reviewed: Yes Constitutional Constitutional: no acute distress, average body habitus and cooperative HEENT Exam HEENT Exam: Normal Neck Exam Neck Exam: Normal Breast Exam Bilateral: Breast Exam: Normal and Soft Respiratory Exam Respiratory Exam: Normal Cardiovascular Exam Cardiovascular Exam: Normal Abdominal Exam Abdomen: Other (soft, nontender) Fundal Exam Fundus: Below Umbilicus and Firm Rectal Exam Rectal Exam: Normal Exam Perineum: Repair Intact Extremities Exam Extremity Exam: Normal, Full ROM and Warm to Touch Back/Spine/Pelvis Exam Back Exam: Normal Skin Exam Skin Exam: Normal Neurological Exam Neurological Exam: Normal Psychiatric Exam Psychiatric Exam: Normal Results Hemoglobin/Hematocrit: Hgb 13.3 g/dL (11.2-15.7) 08/31/24 10:40 Hct 37.4 % (36.0-46.0) 08/31/24 10:40 Abnormal Lab Findings: Abnormal Labs 08/31/24 10:40 Carbon Dioxide 20.9 L Anion Gap 11.1 H Alkaline Phosphatase 195 H Albumin 2.6 L Hemorrrhage Note IV Site Left Upper arm: IV Catheter Gauge: 18
--- NOTE | 2024-09-03 14:45 | W.PM.OBDISCH ---
Date of service: 09/03/24 Time of Service: 14:45 DS: Diagnosis Discharge Diagnosis (1) Term delivered: Status: Acute Discharge Plan Disposition Patient Disposition: Home Condition: Good Discharge Details Reason For Visit: NST Admit Date/Time: 08/31/24 11:39 Admit Provider: Ally Lo Attending Provider: Ally Lo Primary Care Provider: Oliver Barrera Hospital Course Hospital Course: Admitted for induction of labor due to gestational hypertension, on HD#2, nml course, discharge on HD#4 with plan to return for BP check in 2 days. Home Meds and New Rx's Prescriptions: No Action [place] Multivitamin Tablet,Chewable 2 tab PO DAILY ferrous sulfate [Feosol] 325 mg (65 mg iron) tablet 325 mg PO DAILY Qty: 90 4RF docusate sodium [Colace] 100 mg capsule 100 mg PO DAILY Discharge Instructions Additional Instructions: Please keep your 2 and 6 week appointments with the porcelain waxer, call for any and all concerns. Please schedule a BP check for Sunday this week. Stand Alone Forms: BC Instructions, BC Post Vaginal Deliver Activity:: Activity as Tolerated Equipment/Supplies:: No Equipment Needed Diet:: Normal Diet OB:DS Summary Summary Vaginal Delivery Method: Spontaneaous Laceration Description: Perineal Laceration Extension: Second Degree Contraception Discussed Contraception Discussed: Yes Contraceptive Plan: Control Pill/Patch, [place] Infant Gender-Baby A: Male weight: 6 lb 12.291 oz Status at Discharge Functional status at discharge: independent ambulation Overall status at discharge: patient is progressing back to baseline Mental Status: mental status grossly normal Speech and Movement: speech and movement normal and speech clear Mood: congruent mood Affect: normal affect Quality:SDOH Health Related Social Needs: No Data to Display Exam Physical Exam Vital signs: Temp Pulse Resp BP Pulse Ox 98.2 F 66 16 123/90 99 09/03/24 08:00 09/03/24 08:00 09/03/24 08:00 09/03/24 08:00 09/03/24 08:00 Vital Signs Reviewed: Yes Constitutional Constitutional: no acute distress, average body habitus and cooperative HEENT Exam HEENT Exam: Normal Neck Exam Neck Exam: Normal Breast Exam Bilateral: Breast Exam: Normal and Soft Respiratory Exam Respiratory Exam: Normal Cardiovascular Exam Cardiovascular Exam: Normal Abdominal Exam Abdomen: Other (soft, nontender) Fundal Exam Fundus: Below Umbilicus and Firm Rectal Exam Rectal Exam: Normal Exam Perineum: Repair Intact Extremities Exam Extremity Exam: Normal, Full ROM and Warm to Touch Back/Spine/Pelvis Exam Back Exam: Normal Skin Exam Skin Exam: Normal Neurological Exam Neurological Exam: Normal Psychiatric Exam Psychiatric Exam: Normal PFSH All Active Problems (Updated 09/02/24 @ 12:29 by Cande Lloyd) Term delivered (Acute) Gestational hypertension, third trimester (Acute) Rubella non-immune status, antepartum (Acute) Tonsillolith (Acute) BMI 32.0-32.9,adult (Acute) Migraine (Chronic) daily. 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, congenital cartilage deficiency Transformed migraine Sensorineural hearing loss Recurrent candidiasis of vagina Pelvic pain Migraine with aura Hyperprolactinemia Galactorrhea Dysmenorrhea Chronic tension headache Asthma Allergic reaction Surgical History History of mandibular surgery Family History Maternal Grandfather Diabetes Paternal Grandfather Diabetes Maternal Aunt Hypertension Father Laryngeal hypoplasia tracheotomy Mother Preeclampsia ADHD Endometriosis Social History Smoking/Tobacco Use Status: Never Smoking risk assessment performed?: Yes Alcohol Intake: never Drug use: Never Housing: house Do you feel safe at home: Yes Do you feel safe in your relationship?: Yes History History 2 Para 0 Hx # Term Pregnancies 0 Multiple births 0 Hx # Pregnancies 0 Ectopic pregnancies 0 AB induced 0 Hx Number of Living Children 0 AB spontaneous 1 Past Pregnancies Del. Date GA/Weeks # Preg Succ Route Wgt Sex Labor Lgth Anesthesia Location Prov Complic 10/01/23 7 No Delivery Date: 10/01/23 Last Updated by: Stefania Aviles MD SAB DS: Data Vitals/I&O Vitals and I&O: Vital Signs Temperature 98.2 F 09/03/24 08:00 Temperature 98.1 F 08/31/24 10:53 Temperature Source Oral 09/03/24 08:00 Pulse 66 09/03/24 08:00 Pulse 91 08/31/24 10:53 Pulse Rhythm Regular 09/03/24 08:00 Respiratory Rate 16 09/03/24 08:00 Respiratory Depth Normal 09/02/24 20:30 Blood Pressure 123/90 09/03/24 08:00 Blood Pressure 138/91 08/31/24 10:53 Blood Pressure Mean 101 09/03/24 08:00 Pulse Oximetry 99 09/03/24 08:00 Oxygen Delivery Method Room Air 08/31/24 12:14 Oxygen Flow Rate 0 08/31/24 12:14 Pain Level 4 09/03/24 12:10 Comment CNM notified 09/02/24 20:30
[2024-09-03] MEDS: Measles, Mumps, & Rubella Vaccine 0.5 ML VIAL SC (14:57)
== END 2024-09-03 15:40 | disposition home or self-care (01) | DRG 806 ==
LOC: BCD 11:39 → OBS 11:39
PROVIDERS: Admitting Provider Advanced Practice Midwife; PCP Physician Assistant; Visit Provider Advanced Practice Midwife
DX: O13.4 Gestational [pregnancy-induced] hypertension without significant proteinuria, complicating childbirth (principal); E22.1 Hyperprolactinemia; Z37.0 Single live birth; O99.354 Diseases of the nervous system complicating childbirth; O76 Abnormality in fetal heart rate and rhythm complicating labor and delivery; Z3A.39 39 weeks gestation of pregnancy; G43.E09 Chronic migraine with aura, not intractable, without status migrainosus; J45.909 Unspecified asthma, uncomplicated; O99.52 Diseases of the respiratory system complicating childbirth; O99.284 Endocrine, nutritional and metabolic diseases complicating childbirth; O70.1 Second degree perineal laceration during delivery; Z84.89 Family history of other specified conditions
CPT/HCPCS: 36415; 80053; 85027; 86850; 86900; 86901; 90707; 59025; 59200; 82565; 84156; G0378; J2470; J3105; J3490

== ENCOUNTER 2024-09-05 16:10 | Outpatient (CLI) | payer OTHER, SELFPAY ==
[2024-09-05 16:30] LABS: HCT 34.4 % (36.0-46.0); HGB 11.7 g/dL (11.2-15.7); MCH 31.3 pg (27.0-33.0); MCV 92 fL (80-95); MPV 8.9 fL (8.0-11.0); Platelet Count 291 10^3/uL (130-400); RBC 3.74 10^6/uL (3.93-5.22); RDW 12.5 % (11.7-14.6); RDW-SD 41.5 fL; WBC 7.82 10^3/uL (4.4-10.8)
[2024-09-05 17:05] LABS: ALT 62 U/L (14-59); AST 39 U/L (15-37); Albumin 2.7 g/dL (3.4-5.0); Alkaline Phosphatase 133 U/L (46-116); Anion Gap 6.1 mmol/L (3-11); BUN 13 mg/dL (7-18); Bilirubin, Total 0.34 mg/dL (0.2-1.0); CO2 29.9 mmol/L (21.0-32.0); CREATININE 0.9 mg/dL (0.55-1.02); Calcium 10.1 mg/dL (8.5-10.1); Chloride 108 mmol/L (98-107); Estimated GFR 90.42 (mL/min/1.73m2); Glucose 91 mg/dL (74-106); Potassium 5.1 mmol/L (3.5-5.1); Sodium 144 mmol/L (136-145); Total Protein 6.7 g/dL (6.4-8.2)
== END 2024-09-05 16:11 | disposition home or self-care (01) ==
LOC: LBO 16:11
PROVIDERS: PCP Physician Assistant; Visit Provider Advanced Practice Midwife
DX: O16.5 Unspecified maternal hypertension, complicating the puerperium (principal); O80 Encounter for full-term uncomplicated delivery
CPT/HCPCS: 36415; 80053; 85027

== ENCOUNTER 2024-09-08 08:53 | Outpatient (CLI) | payer OTHER, SELFPAY ==
[2024-09-08 11:35] VITALS: BP 123/84; PULSE 93; RESP 12
[2024-09-08 12:28] LABS: HCT 40.9 % (36.0-46.0); HGB 14.2 g/dL (11.2-15.7); MCH 31.4 pg (27.0-33.0); MCHC 34.7 % (32.0-36.0); MCV 91 fL (80-95); MPV 8.7 fL (8.0-11.0); Platelet Count 379 10^3/uL (130-400); RBC 4.52 10^6/uL (3.93-5.22); RDW 12.3 % (11.7-14.6); RDW-SD 40.4 fL; WBC 7.66 10^3/uL (4.4-10.8)
[2024-09-08 12:44] LABS: ALT 59 U/L (14-59); AST 28 U/L (15-37); Albumin 3.2 g/dL (3.4-5.0); Alkaline Phosphatase 136 U/L (46-116); Anion Gap 8.3 mmol/L (3-11); BUN 15 mg/dL (7-18); Bilirubin, Total 0.35 mg/dL (0.2-1.0); CO2 26.7 mmol/L (21.0-32.0); CREATININE 0.9 mg/dL (0.55-1.02); Calcium 9.9 mg/dL (8.5-10.1); Chloride 108 mmol/L (98-107); Estimated GFR 90.42 (mL/min/1.73m2); Glucose 90 mg/dL (74-106); Potassium 4.3 mmol/L (3.5-5.1); Sodium 143 mmol/L (136-145); Total Protein 7.6 g/dL (6.4-8.2)
== END 2024-09-08 17:54 ==
LOC: BCD 08:55 → OBS 11:26
PROVIDERS: PCP Physician Assistant; Visit Provider Advanced Practice Midwife
DX: O13.5 Gestational [pregnancy-induced] hypertension without significant proteinuria, complicating the puerperium (principal)
CPT/HCPCS: 36415; 80053; 85027; 99211